=== PATIENT | female | born 1950 | race Two or more races ===

== ENCOUNTER 2017-08-09 08:10 | Outpatient (CLI) | payer OTHER ==
[~2017-08-09 08:10] MED LIST: AMOX1TAB12 PO; BACTROBAN OINT22 GM TP; CATAFLAM50 MG PO; E.E.S. 400400 MG PO; NABUMETONE750 MG PO; PAXIL30 MG PO; TRIPLE ANTIBIOT15 GM TP; ZANTAC150 M1 PO
== END 2017-08-09 08:11 | disposition home or self-care (01) ==
LOC: NUCLEAR 08:10
DX: M54.5 Low back pain (principal); M25.511 Pain in right shoulder; M62.838 Other muscle spasm; G89.29 Other chronic pain; M79.1 Myalgia; E78.2 Mixed hyperlipidemia; K57.30 Diverticulosis of large intestine without perforation or abscess without bleeding; K52.9 Noninfective gastroenteritis and colitis, unspecified; F33.0 Major depressive disorder, recurrent, mild; F90.9 Attention-deficit hyperactivity disorder, unspecified type; F41.9 Anxiety disorder, unspecified; M51.35 Other intervertebral disc degeneration, thoracolumbar region; M54.89 Other dorsalgia; M24.9 Joint derangement, unspecified; G44.1 Vascular headache, not elsewhere classified; J45.909 Unspecified asthma, uncomplicated; L98.9 Disorder of the skin and subcutaneous tissue, unspecified; E55.9 Vitamin D deficiency, unspecified; E83.52 Hypercalcemia; E53.8 Deficiency of other specified B group vitamins; G47.00 Insomnia, unspecified; X95.8XXS Assault by other firearm discharge, sequela; R12 Heartburn; Z68.26 Body mass index [BMI] 26.0-26.9, adult; Z86.010 Personal history of colon polyps; N60.21 Fibroadenosis of right breast; N60.22 Fibroadenosis of left breast; M06.4 Inflammatory polyarthropathy
CPT/HCPCS: 78315; A9503

== ENCOUNTER 2017-08-09 08:10 | Outpatient (CLI) | payer OTHER | END 2017-08-09 09:30 | disposition home or self-care (01) | LOC: RAD 08:10 → MAMO-SONO 08:45 → RAD 09:30 | DX: Z12.31 Encounter for screening mammogram for malignant neoplasm of breast (principal); Z87.898 Personal history of other specified conditions; E78.2 Mixed hyperlipidemia; K57.30 Diverticulosis of large intestine without perforation or abscess without bleeding; F33.0 Major depressive disorder, recurrent, mild; F90.9 Attention-deficit hyperactivity disorder, unspecified type; F41.8 Other specified anxiety disorders; M54.5 Low back pain; M51.35 Other intervertebral disc degeneration, thoracolumbar region; M62.838 Other muscle spasm; M54.89 Other dorsalgia; M79.1 Myalgia; M25.511 Pain in right shoulder; G44.1 Vascular headache, not elsewhere classified; J45.909 Unspecified asthma, uncomplicated; E55.9 Vitamin D deficiency, unspecified; E83.52 Hypercalcemia; E53.8 Deficiency of other specified B group vitamins; X95.8XXS Assault by other firearm discharge, sequela; R12 Heartburn; G89.29 Other chronic pain; Z68.26 Body mass index [BMI] 26.0-26.9, adult; Z86.010 Personal history of colon polyps; N60.21 Fibroadenosis of right breast; N60.22 Fibroadenosis of left breast; M06.4 Inflammatory polyarthropathy; G47.09 Other insomnia; L98.8 Other specified disorders of the skin and subcutaneous tissue; K52.89 Other specified noninfective gastroenteritis and colitis ==